=== PATIENT | female | born 1995 | race Caucasian/White ===

== ENCOUNTER 2017-12-26 10:32 | Emergency (ER) | payer OTHER, MEDICAID ==
[2017-12-26 11:14] VITALS: BP 124/93
--- NOTE | 2017-12-26 12:02 | EDM.PDOC ---
ED HPI GENERAL MEDICAL PROBLEM - General Chief Complaint: Neurological Problem Stated Complaint: NOSE LAC Time Seen by Provider: 12/26/17 11:42 Source of Information: Reports: Patient, Family (mother) History Limitations: Reports: No Limitations - History of Present Illness INITIAL COMMENTS - FREE TEXT/NARRATIVE: 22-year-old female presents with her mother for evaluation and treatment of injury sustained from a seizure. The patient has a past medical history of drop seizures. She reportedly had one on Wednesday, 2 yesterday and 1 earlier today. The Seizure from today resulted in a laceration to the nose and nasal swelling. Mom states that she did not witness the seizure. Occurred around 0945 this morning. Reports it was a drop seizure and she likely struck her nose on either the bathtub or cabinet. She is complaining currently complaining of facial pain and headache. Mom said she often gets headaches after a seizure. No vomiting. Patient currently on 3 different medications seizures. She sees a neurologist in [place]. Last visit was about 2 months compared states they're currently trying to lower her medications due to having increased seizures mom does not feel optimistic about this. She does not wear a helmet for her drop seizures. Location: Reports: Face Head Pain Score (Numeric/FACES): 3 - Related Data Allergies Allergy/AdvReac Type Severity Reaction Status Date / Time No Known Allergies Allergy Verified 12/26/17 11:17 Home Meds: Home Meds Ascorbate Calcium [Vitamin C] 500 mg PO BID 02/05/15 [History] Calcium Supplement 1 tab PO DAILY 02/05/15 [History] Cholecalciferol (Vitamin D3) [Vitamin D] 1,200 unit PO DAILY 02/05/15 [History] Divalproex Sodium [Depakote] 500 mg PO QAM 02/05/15 [History] Magnesium Complex 1 tab PO DAILY 02/05/15 [History] Topiramate 150 mg PO QPM 02/05/15 [History] Vitamin B Complex [B Complex] 1 tab PO DAILY 02/05/15 [History] Zonisamide [Zonegran] 100 mg PO BID 02/05/15 [History] Divalproex Sodium [Depakote] 1,000 mg PO QPM 12/26/17 [History] Past Medical History Other HEENT History: Strabismus, tear duct R) eye. Neurological History: Reports: Headaches, Chronic, Seizure Psychiatric History: Reports: Depression - Past Surgical History HEENT Surgical History: Reports: Tonsillectomy Social & Family History - Tobacco Use Smoking Status *Q: Never Smoker - Caffeine Use Caffeine Use: Reports: None - Alcohol Use Days Per Week of Alcohol Use: 0 - Recreational Drug Use Recreational Drug Use: No ED ROS GENERAL - Review of Systems Review Of Systems: See Below HEENT: Reports: Nosebleed, Nose Pain (swelling) GI/Abdominal: Denies: Vomiting Neurological: Reports: Headache, Seizure - Physical Exam Exam: See Below Exam Limited By: No Limitations General Appearance: Alert, WD/WN, No Apparent Distress Eye Exam: Bilateral Eye: Normal Inspection, PERRL Ears: Normal External Exam, Normal Canal, Hearing Grossly Normal, Normal TMs Nose: Nasal Swelling, Other (no active bleeding; swollen turbinates) Throat/Mouth: Normal Inspection, Normal Lips, Normal Teeth, Normal Oropharynx, Normal Voice, No Airway Compromise. No: Evidence of Tongue Biting Head Exam: Facial Abrasions (2 1cm superficial abrasions to the nasal bone), Facial Swelling (nasal bridge). No: Scalp Lacerations, Scalp Swelling, Scalp Abrasions, Scalp Ecchymosis, Scalp Hematoma, Scalp Tenderness, Facial Lacerations Neck: Normal Inspection, Supple, Non-Tender, Full Range of Motion Respiratory/Chest: No Respiratory Distress, Lungs Clear, Normal Breath Sounds Cardiovascular: Normal Peripheral Pulses, Regular Rate, Rhythm, No Murmur GI/Abdominal: Normal Bowel Sounds, Soft, Non-Tender Neuro Exam (Abbreviated): Alert, Normal Cognition, Normal Gait Psychiatric: Normal Mood, Flat Affect Skin Exam: Warm, Dry, Normal Color, Wound/Incision (nasal bridge) Course - Vital Signs Last Recorded V/S: Last Vital Signs Temp 36.3 C 12/26/17 11:02 Pulse 88 12/26/17 11:02 Resp 16 12/26/17 11:02 BP 124/93 H 12/26/17 11:02 Pulse Ox 98 12/26/17 11:02 - Radiology Interpretation Free Text/Narrative:: CT facial bones Technique: Multiple axial sections through the facial bones were obtained. Reconstructed coronal and sagittal images were reviewed. Comparison: No previous study. Findings: Minimal mucosal thickening within the inferior right maxillary sinus is seen. Other sinuses are clear. No fluid is seen within the paranasal sinuses. Minimal lucent line within the tip of the nasal bone is seen which could represent very minimal fracture. No other facial bone fracture is seen. Right and left globes are symmetric. Impression: 1. Possible minimal fracture within the tip of the nasal bone. 2. Minimal mucosal thickening which is incidental within the inferior right maxillary sinus. 3. No additional finding is seen on CT study of the facial bones. - Re-Assessments/Exams Free Text/Narrative Re-Assessment/Exam: 12/26/17 13:[address] Kwon come see the patient with me due to concerns of a septal hematoma to the left septum. He did not appreciate any septal hematoma. Turbinates are quite swollen from the trauma cells likely from allergies as well. Reviewed the CT results with the patient and her mother. Plan will be to follow up with ENT to [place]. She should follow-up in about one week for reevaluation once the swelling has subsided. Mom will let her neurologist know she is having increasing seizures. Follow-up with neurology for further management. Discharge instructions as documented. Departure - Departure Time of Disposition: 13:08 Disposition: Home, Self-Care 01 Condition: Good Clinical Impression: Laceration, Nasal bone fracture - Discharge Information Instructions: Nasal Fracture, [id number], Laceration Care, Adult Referrals: Alexa Morse, [employer] [Primary Care Provider] - Forms: ED Department Discharge Additional Instructions: [id number] Tylenol or Motrin as needed for pain relief. Ice the nose 4 or 5 times a day for 10-15 minutes. Wash the laceration with gentle soap and water twice a day. Apply antibacterial ointment such as Neosporin or bacitracin to the wound twice a day. Monitor the wound for signs of infection such as increased swelling, pus or redness. Presents to clinic or the ER should these develop. Follow-up with ENT in [place] in about [address] Delgado at [facility] Sinus, ear, allergy. Call [phone] to schedule an appointment with him. Make sure you bring your disc of your CT scan as well as the report any other pertinent information. Please return to the ER for symptoms change or worsen.
--- NOTE | 2017-12-26 12:58 | CT ---
CT facial bones Technique: Multiple axial sections through the facial bones were obtained. Reconstructed coronal and sagittal images were reviewed. Comparison: No previous study. Findings: Minimal mucosal thickening within the inferior right maxillary sinus is seen. Other sinuses are clear. No fluid is seen within the paranasal sinuses. Minimal lucent line within the tip of the nasal bone is seen which could represent very minimal fracture. No other facial bone fracture is seen. Right and left globes are symmetric. Impression: 1. Possible minimal fracture within the tip of the nasal bone. 2. Minimal mucosal thickening which is incidental within the inferior right maxillary sinus. 3. No additional finding is seen on CT study of the facial bones. Diagnostic code #2
== END 2017-12-26 13:28 | disposition home or self-care (01) ==
LOC: JD.ED 10:32
DX: S02.2XXA Fracture of nasal bones, initial encounter for closed fracture (principal); F32.9 Major depressive disorder, single episode, unspecified; Z79.899 Other long term (current) drug therapy; W22.8XXA Striking against or struck by other objects, initial encounter
CPT/HCPCS: 70486; 70486-26; 99284-25

== ENCOUNTER 2023-02-08 16:51 | Emergency (ER) | payer OTHER, MEDICAID ==
[2023-02-08 18:41] VITALS: BP 111/80; PULSE 68
== END 2023-02-08 18:20 | disposition home or self-care (01) ==
LOC: JD.ED 16:51
DX: S01.01XA Laceration without foreign body of scalp, initial encounter (principal); Z86.16 Personal history of COVID-19; Z79.899 Other long term (current) drug therapy; W19.XXXA Unspecified fall, initial encounter
CPT/HCPCS: 12002; 99282; 99283

== ENCOUNTER 2023-11-03 23:51 | Emergency (ER) | payer OTHER, MEDICARE, MEDICAID ==
[2023-11-04] MEDS: Bacitracin Oint 15 GM Tube TOP ONE (02:37)
[2023-11-04] MEDS: Diphtheria,Pertussis(Acell),Tetanus Vaccine 0.5 ML Syringe IM ONE (02:37)
[2023-11-04 03:40] VITALS: BP 115/82; PULSE 81
== END 2023-11-04 02:47 | disposition home or self-care (01) ==
LOC: JD.ED 23:51
DX: S21.212A Laceration without foreign body of left back wall of thorax without penetration into thoracic cavity, initial encounter (principal); G40.909 Epilepsy, unspecified, not intractable, without status epilepticus; Z23 Encounter for immunization; W18.02XA Striking against glass with subsequent fall, initial encounter; Z86.16 Personal history of COVID-19; Z79.899 Other long term (current) drug therapy
CPT/HCPCS: 72070; 72070-26; 90471; 90715; 99284-25; A9270-GY

== ENCOUNTER 2025-01-18 17:27 | Emergency (ER) | payer MEDICARE, MEDICAID ==
[2025-01-18] MEDS ORDERED: Sodium Chloride 0.9% 10 ML Syringe FLUSH PRN (18:20)
[2025-01-18 19:02] LABS: BASOPHILS ABSOLUTE AUTO 0.1 K/mm3 (0.0-0.2); BASOPHILS PERCENT AUTO 0.7 % (0.0-1.0); EOSINOPHILS PERCENT AUTO 0.3 % (0.0-6.0); HEMATOCRIT 38.5 % (37.0-47.0); HEMOGLOBIN 12.7 gm/dl (12.0-16.0); IMMATURE GRAN ABSOLUTE AUTO 0.02 K/mm3 (0.00-0.05); IMMATURE GRAN PERCENT AUTO 0.3 % (0.0-0.4); LYMPHOCYTES ABSOLUTE AUTO 2.5 K/mm3 (1.0-4.8); LYMPHOCYTES PERCENT AUTO 35.4 % (24.0-44.0); MEAN CORPUSCULAR HEMOGLOBIN 28.9 pg (28.0-32.0); MEAN CORPUSCULAR VOLUME 87.5 fl (83.0-99.0); MEAN PLATELET VOLUME 10.2 fl (9.4-12.3); MONOCYTES ABSOLUTE AUTO 0.7 K/mm3 (0.0-0.8); MONOCYTES PERCENT AUTO 9.3 % (0.0-8.0); NEUTROPHILS ABSOLUTE AUTO 3.9 K/mm3 (1.8-7.7); PLATELET COUNT,PLT 272 K/mm3 (150-400); WHITE BLOOD CELL COUNT,WBC 7.18 K/mm3 (3.9-11.3)
[2025-01-18] MEDS ORDERED: Naloxone 0.4 MG/ML SDV IVPUSH PRN (19:14)
[2025-01-18 19:19] LABS: INR 1.02; PROTHROMBIN TIME 10.8 SECONDS (9.7-12.0)
[2025-01-18 19:20] LABS: PTT,PARTIAL THROMBOPLSTIN TIME 28.8 SECONDS (21.7-31.4)
[2025-01-18 19:22] LABS: ALBUMIN 3.6 g/dl (3.4-5.0); ANION GAP 17.5 (5-15); BILIRUBIN TOTAL 0.3 mg/dL (0.2-1.0); BUN/CREATININE RATIO 25.7 (14-18); CREATININE 0.7 mg/dL (0.55-1.02); EST CRCL DRUG DOSING (CG) 104.23 mL/min; POTASSIUM,K 3.5 mEq/L (3.5-5.1); PROTEIN TOTAL,TP 7.4 g/dl (6.4-8.2)
[2025-01-18] MEDS: fentaNYL 100 MCG/2 ML SDV IVPUSH ONE ×2 (19:25→20:25)
[2025-01-18] MEDS: Iopamidol 755 Mg/ML 100 ML Bottle IVPUSH ONE (20:23)
[2025-01-18] MEDS: Sodium Chloride 0.9% 100 ML IV SCH (20:23)
[2025-01-18] MEDS: Lactated Ringers 1,000 ML IV SCH (20:24)
[2025-01-18 23:06] VITALS: PULSE 80
[2025-01-18 23:56] VITALS: BP 126/85
== END 2025-01-19 00:47 ==
LOC: JD.ED 17:27
DX: S15.101A Unspecified injury of right vertebral artery, initial encounter (principal); S12.101A Unspecified nondisplaced fracture of second cervical vertebra, initial encounter for closed fracture; Z79.899 Other long term (current) drug therapy; Z86.16 Personal history of COVID-19; X58.XXXA Exposure to other specified factors, initial encounter
CPT/HCPCS: 36415; 70450; 70450-26; 70498; 70498-26; 72125; 72125-26; 72128; 72128-26; 72131; 72131-26; 72192; 72192-26; 80053; 85025; 85610; 85730; 96361; 96374; 96376; 99285; 99285-25; J3010; J7120; Q9967

== ENCOUNTER 2025-07-19 15:51 | Emergency (ER) | payer MEDICARE, MEDICAID ==
[2025-07-19 16:02] VITALS: PULSE 80
[2025-07-19] MEDS ORDERED: Sodium Chloride 0.9% 10 ML Syringe FLUSH PRN (16:04)
[2025-07-19] MEDS: LORazepam 2 MG/ML SDV IVPUSH ONE (16:36)
[2025-07-19 16:44] LABS: BASOPHILS ABSOLUTE AUTO 0.1 K/mm3 (0.0-0.2); BASOPHILS PERCENT AUTO 0.6 % (0.0-1.0); EOSINOPHILS ABSOLUTE AUTO 0.1 K/mm3 (0.0-0.4); EOSINOPHILS PERCENT AUTO 1.0 % (0.0-6.0); IMMATURE GRAN ABSOLUTE AUTO 0.06 K/mm3 (0.00-0.05); IMMATURE GRAN PERCENT AUTO 0.7 % (0.0-0.4); LYMPHOCYTES ABSOLUTE AUTO 2.7 K/mm3 (1.0-4.8); LYMPHOCYTES PERCENT AUTO 30.2 % (24.0-44.0); MEAN PLATELET VOLUME 10.0 fl (9.4-12.3); MONOCYTES ABSOLUTE AUTO 0.9 K/mm3 (0.0-0.8); MONOCYTES PERCENT AUTO 10.3 % (0.0-8.0); NEUTROPHILS ABSOLUTE AUTO 5.2 K/mm3 (1.8-7.7); NEUTROPHILS PERCENT AUTO 57.2 % (41.0-71.0); NRBC ABSOLUTE 0.00 (0.00-0.02); NRBC PERCENT 0.0 % (0.0-0.2); PLATELET COUNT,PLT 186 K/mm3 (150-400); RED BLOOD CELL COUNT 4.44 M/mm3 (4.10-5.30); WHITE BLOOD CELL COUNT,WBC 9.02 K/mm3 (3.9-11.3)
[2025-07-19 17:02] LABS: APPEARANCE,URINE CLEAR (Clear); GLUCOSE,URINE NEGATIVE (Negative); OCCULT BLOOD,URINE TRACE-INTACT (Negative)
[2025-07-19 17:10] LABS: A/G RATIO 1.0 (1-2); ALANINE AMINOTRANSFERASE,ALT 29 U/L (14-59); ASPARTATE AMNIOTRANSFERASE,AST 18 U/L (15-37); BILIRUBIN TOTAL 0.2 mg/dL (0.2-1.0); BLOOD UREA NITROGEN,BUN 28 mg/dL (7-18); CARBON DIOXIDE,CO2 23 mEq/L (21-32); CHLORIDE,CL 107 mEq/L (98-107); CREATININE 0.9 mg/dL (0.55-1.02); ESTIMATED GFR 87 mL/min (>60); GLUCOSE RANDOM 89 mg/dL (70-99); POTASSIUM,K 3.8 mEq/L (3.5-5.1); PROTEIN TOTAL,TP 7.3 g/dl (6.4-8.2); SODIUM,NA 144 mEq/L (136-145)
[2025-07-19] MEDS: Magnesium Citrate Solution 296 ML Bottle PO ONE (18:39)
[2025-07-19 19:17] VITALS: BP 116/84
[2025-07-23 04:41] LABS: LACOSAMIDE, S 1.9 ug/mL (1.0-10.0); ZONISAMIDE 28 ug/mL (10-40)
== END 2025-07-19 18:50 | disposition home or self-care (01) ==
LOC: JD.ED 15:51
DX: G40.909 Epilepsy, unspecified, not intractable, without status epilepticus (principal); K59.00 Constipation, unspecified; Z79.899 Other long term (current) drug therapy; Z86.16 Personal history of COVID-19
CPT/HCPCS: 36415; 71045; 74018; 80053; 80203; 80235; 81001; 85025; 86140; 87086; 87088; 87186; 96361; 96374; 99284; A9270; J2060; J7030

== ENCOUNTER 2025-07-20 15:31 | Emergency (ER) | payer MEDICARE, MEDICAID ==
[2025-07-20 17:54] VITALS: BP 112/79; PULSE 77
== END 2025-07-20 17:51 | disposition home or self-care (01) ==
LOC: JD.ED 15:31
DX: G40.909 Epilepsy, unspecified, not intractable, without status epilepticus (principal); S16.1XXA Strain of muscle, fascia and tendon at neck level, initial encounter; Z79.899 Other long term (current) drug therapy; Z86.16 Personal history of COVID-19; W01.198A Fall on same level from slipping, tripping and stumbling with subsequent striking against other object, initial encounter; Y93.89 Activity, other specified
CPT/HCPCS: 72125; 72125-26; 99284